=== PATIENT | female | born 1955 | race Two or more races ===

== ENCOUNTER 2022-12-10 12:02 | Emergency (ER) | payer MEDICARE, MEDICAID ==
[2022-12-10] MEDS ORDERED: Clindamycin 150 MG CAP ONE (13:01)
== END 2022-12-10 13:17 | disposition home or self-care (01) ==
LOC: MADERS 12:02
DX: L02.01 Cutaneous abscess of face (principal); I10 Essential (primary) hypertension; F17.210 Nicotine dependence, cigarettes, uncomplicated
CPT/HCPCS: 99283